=== PATIENT | male | born 1935 | race Caucasian/White ===

== ENCOUNTER → 2017-06-22 02:42 | Emergency (ER) | payer MEDICARE, BC ==
[~2017-06-22 02:42] MED LIST: Iohexol 300* (CONTRAST) 10 ML SDV IV ONE; NS 0.9% 1000 ML* 1,000 ML IV ONE
[2017-06-22 05:46] LABS: Hematocrit 45 % (42-52); Hemoglobin 14.8 g/dl (14.0-18.0); Mean Corpuscular HGB Conc 33 g/dl (31-36); Mean Corpuscular Hemoglobin 30 pg (27-31); Mean Corpuscular Volume 92 fL (80-94); Mean Platelet Volume 9 um3 (7.4-10.4); Red Blood Count 4.87 10^6/ul (4.0-5.4); Red Cell Distribution Width 14 % (10.5-15); White Blood Count 11.5 10^3/ul (3.5-10.8)
[2017-06-22 06:11] LABS: Albumin 4.6 g/dL (3.2-5.2); BUN/Creatinine Ratio 13.8 (8-20); C Reactive Protein 2.92 mg/L (< 5.00); Calcium 9.8 mg/dL (8.6-10.3); EGFR African American 77.3 (>60); EGFR Non-African American 60.1 (>60); Globulin 2.9 g/dL (2-4); Potassium 4.1 mmol/L (3.5-5.0); Total Bilirubin 0.8 mg/dL (0.2-1.0); Total Protein 7.5 g/dL (6.4-8.9)
--- NOTE | 2017-06-22 06:44 | ED ---
Susan Burton Rebecca, scribed for Rhys Amin MD on 06/22/17 at 0350 . Abdominal Pain/Male - HPI Summary HPI Summary: Pt is an 82 y/o M who presents to ED c/o RLQ abdominal pain. Pain began at 2330 tonight after eating and is currently moderate, ranked 7/10. 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 Sx aggravated and alleviated by nothing. Additionally c/ o abdominal bloating. Denies N/V/D, blood in stool, hematuria, fever, chills, rhinorrhea, sore throat and rash. Pt reports he is not passing flatulence or belching. Has had a BM since onset of pain. No prior similar episodes. PMHx diverticulitis. - History of Current Complaint Chief Complaint: EDAbdPain Stated Complaint: LRQ PAIN Time Seen by Provider: 06/22/17 03:44 Hx Obtained From: Patient Onset/Duration: Still Present Severity Currently: Moderate Pain Intensity: 7 Pain Scale Used: 0-10 Numeric Location: Discrete At: RLQ Radiates: No Aggravating Factor(s): Nothing Alleviating Factor(s): Nothing Associated Signs And Symptoms: Positive: Other - Abdominal bloating. Negative: Fever, Blood in Stool, Nausea, Vomiting, Diarrhea - Allergies/Home Medications Allergies/Adverse Reactions: Allergies Allergy/AdvReac Type Severity Reaction Status Date / Time No Known Allergies Allergy Verified 06/22/17 03:59 PMH/Surg Hx/FS Hx/Imm Hx Endocrine/Hematology History: Denies: Hx Diabetes Cardiovascular History: Denies: Hx Hypertension, Hx Pacemaker/ICD Respiratory History: Denies: Hx Asthma, Other Respiratory Problems/Disorders GI History: Reports: Other GI Disorders - Hx diverticulitis History: Denies: Hx Renal Disease Sensory History: Reports: Hx Hearing Aid Psychiatric History: Denies: Hx Panic Disorder - Surgical History Surgery Procedure, Year, and Place: 2 HERNIA, PILONIDAL CYST - Immunization History Date of Tetanus Vaccine: Unk Date of Influenza Vaccine: Fall 2015 Infectious Disease History: No Infectious Disease History: Denies: Hx Clostridium Difficile, Hx Hepatitis, Hx Human Immunodeficiency Virus (HIV), Hx of Known/Suspected MRSA, Hx Shingles, Hx Tuberculosis, Hx Known/ Suspected VRE, Hx Known/Suspected VRSA, History Other Infectious Disease, Traveled Outside the [place] in Last 30 Days - Family History Known Family History: Negative: Cardiac Disease, Hypertension, Diabetes - Social History Alcohol Use: Daily Alcohol Amount: 1 glass of wine daily, 1 glass of Scotch on Thursday Substance Use Type: Reports: None Smoking Status (MU): Never Smoked Tobacco Have You Smoked in the Last Year: No Review of Systems Negative: Fever, Chills Negative: Sore Throat, Nasal Discharge Positive: Abdominal Pain - RLQ abd pain, Other - Abdominal bloating. Negative: Vomiting, Diarrhea, Nausea Positive: other - Negative: blood in stool. Negative: hematuria Negative: Rash All Other Systems Reviewed And Are Negative: Yes Physical Exam - Summary Physical Exam Summary: The patient is well-nourished in no acute distress and in no acute pain. The skin is slightly diaphoretic, warm and skin color reflects adequate perfusion. HEENT: The head is normocephalic and atraumatic. The pupils are equal and reactive. The conjunctivae are clear and without drainage. Nares are patent and without drainage. Mouth reveals moist mucous membranes and the throat is without erythema and exudate. The external ears are intact. The ear canals are patent and without drainage. The tympanic membranes are intact. Neck is supple with full range of motion and non-tender. There are no carotid bruits. There is no neck vein distension. Respiratory: Chest is non-tender. Lungs are clear to auscultation and breath sounds are symmetrical and equal. Cardiovascular: Hear is regular rate and rhythm. There is no murmur or rub auscultated. There is no peripheral edema and pulses are symmetrical and equal. Abdomen: The abdomen is soft and non-tender with no truly reproducible pain, though he points to the right side of the abdomen. No guarding and no rebound. There are normal bowel sounds heard in all four quadrants and there is no organomegaly palpated. Musculoskeletal: No CVA tenderness. Extremities are non-tender with full range of motion. There is good capillary refill. There is no peripheral edema or calf tenderness elicited. Neurological: Patient is alert and oriented to person, place and time. The patient has symmetrical motor strength in all four extremities. Psychiatric: The patient has an appropriate affect and does not exhibit any anxiety or depression. Triage Information Reviewed: Yes Vital Signs On Initial Exam: Initial Vitals Temp Pulse Resp BP Pulse Ox 98.7 F 53 18 187/81 98 06/22/17 02:48 06/22/17 02:48 06/22/17 02:48 06/22/17 02:48 06/22/17 02:48 Vital Signs Reviewed: Yes Diagnostics - Vital Signs Vital Signs Temp Pulse Resp BP Pulse Ox 06/22/17 02:50 98.7 F 53 18 187/81 98 06/22/17 02:48 98.7 F 53 18 187/81 98 - Laboratory Lab Results: Lab Results 06/22/17 06/22/17 06/22/17 Range/Units 05:15 05:15 05:15 WBC 11.5 H (3.5-10.8) 10^3/ul RBC 4.87 (4.0-5.4) 10^6/ul Hgb 14.8 (14.0-18.0) g/dl Hct 45 (42-52) % MCV 92 (80-94) fL MCH 30 (27-31) pg MCHC 33 (31-36) g/dl RDW 14 (10.5-15) % Plt Count 237 (150-450) 10^3/ul MPV 9 (7.4-10.4) um3 Neut % (Auto) 89.3 H (38-83) % Lymph % (Auto) 7.6 L (25-47) % [place] % (Auto) 2.6 (1-9) % Eos % (Auto) 0.1 (0-6) % Baso % (Auto) 0.4 (0-2) % Absolute Neuts (auto) 10.2 H (1.5-7.7) 10^3/ul Absolute Lymphs (auto) 0.9 L (1.0-4.8) 10^3/ul Absolute Monos (auto) 0.3 (0-0.8) 10^3/ul Absolute Eos (auto) 0 (0-0.6) 10^3/ul Absolute Basos (auto) 0 (0-0.2) 10^3/ul Absolute Nucleated RBC 0.01 10^3/ul Nucleated RBC % 0.1 Sodium 134 (133-145) mmol/L Potassium 4.1 (3.5-5.0) mmol/L Chloride 101 (101-111) mmol/L Carbon Dioxide 28 (22-32) mmol/L Anion Gap 5 (2-11) mmol/L BUN 16 (6-24) mg/dL Creatinine 1.16 (0.67-1.17) mg/dL Est GFR ( Amer) 77.3 (>60) Est GFR (Non-Af Amer) 60.1 (>60) BUN/Creatinine Ratio 13.8 (8-20) Glucose 172 H (70-100) mg/dL Lactic Acid 1.4 (0.5-2.0) mmol/L Calcium 9.8 (8.6-10.3) mg/dL Total Bilirubin 0.80 (0.2-1.0) mg/dL AST 27 (13-39) U/L ALT 26 (7-52) U/L Alkaline Phosphatase 59 (34-104) U/L Troponin I 0.00 (<0.04) ng/mL C-Reactive Protein 2.92 (< 5.00) mg/L Total Protein 7.5 (6.4-8.9) g/dL Albumin 4.6 (3.2-5.2) g/dL Globulin 2.9 (2-4) g/dL Albumin/Globulin Ratio 1.6 (1-3) Amylase 34 (29-103) U/L Lipase 25 (11.0-82.0) U/L Result Diagrams: 06/22/17 05:15 06/22/17 05:15 Lab Statement: Any lab studies that have been ordered have been reviewed, and results considered in the medical decision making process. - CT CT Abd/Pel CT Interpretation Completed By: Radiologist - See [facility], pending radiologist report. - EKG 0458 Cardiac Rate: Bradycardia - 59 bpm EKG Rhythm: Sinus Bradycardia EKG Interpretation: Poor R wave progression, no STEMI Abdominal Pain Fem Course/Dx - Course Assessment/Plan: Pt is an 82 y/o M who presents to ED c/o RLQ abdominal pain. Pain began at 2330 tonight after eating and is currently moderate, ranked 7/10. 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 Sx aggravated and alleviated by nothing. Additionally c/o abdominal bloating. Denies N/V/D, blood in stool, hematuria, fever, chills, rhinorrhea, sore throat and rash. Pt reports he is not passing flatulence or belching. Has had a BM since onset of pain. No prior similar episodes. PMHx diverticulitis. EKG reveals sinus libby with poor R wave progression and no STEMI. In the ED course, pt was administered fluids. Pt will be signed out, pending dispo, awaiting CT Abd/Pel. Elevated BP noted and advised to f/u with PCP. - Diagnoses Differential Diagnosis/HQI/PQRI: Abdominal Aortic Aneurysm, Appendicitis, Bowel Obstruction, Constipation, Diverticulitis, Gall Bladder Disease Provider Diagnoses: Abdominal pain Discharge - Discharge Plan Condition: Stable Disposition: OTHER Discharge Disposition Comment: Pt will be signed out, pending dispo, awaiting CT. Referrals: Hunter Posada MD [Primary Care Provider] - The documentation as recorded by the Susan jenkins Rebecca accurately reflects the service I personally performed and the decisions made by , Rhys Amin MD.
--- NOTE | 2017-06-22 08:23 | RAD ---
INDICATION: Right lower quadrant pain COMPARISON: CT abdomen pelvis January 19, 2010 TECHNIQUE: Axial source images were obtained from the hemidiaphragms to the symphysis pubis following administration of oral and intravenous contrast. 91 mL Omnipaque 300 was utilized. Coronal and sagittal reconstructed images were acquired. Lung bases: There is mild bronchiectatic changes in lung bases. There is a bulla/pneumatocele left lung base, unchanged. Liver: The liver is normal in size. There are no masses. There is no ductal dilatation. Gallbladder: There are several small calcified gallstones. There is no thickening gallbladder wall or pericholecystic fluid. Spleen: The spleen is normal in size. There are no masses. Pancreas: There is no focal pancreatic mass or ductal dilatation. Adrenal glands: There is no evidence of adrenal mass. Kidneys: The kidneys are normal in size and position. There are prompt nephrograms and there is prompt excretion bilaterally. There are no renal parenchymal masses. There is no evidence of nephrolithiasis. Adenopathy: There is no evidence of adenopathy by size criteria. Fluid collections: There are no free or localized fluid collections. Vessels:There are atherosclerotic changes involving the aorta and iliac vessels. There is iliac tortuosity and ectasia. There is no focal aneurysm. The IVC appears normal. GI tract: There are no acute CT bowel findings. There is no obstruction. There is a small hiatal hernia. There is a rounded hollow viscus in the central abdomen with air-fluid level containing contrast which measures approximately 4 cm maximum transverse dimension. This likely a giant diverticulum of the small bowel. The lower GI tract is remarkable for extensive diverticula of the sigmoid colon. The cecum, ileocecal valve, and terminal ileum appear normal. The appendix is visualized and appear normal. Pelvic organs: The prostate is enlarged Bladder: There are no bladder masses. Abdominal and pelvic soft tissues: Bilateral fat-containing inguinal hernias. Osseous structures: There are no acute osseous findings. Other: None IMPRESSION: 1. No acute CT findings. No mass or inflammatory changes. 2. Cholelithiasis. No convincing CT evidence of acute cholecystitis. 3. Extensive sigmoid diverticula. No convincing CT evidence of acute diverticulitis 4. 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
[2017-06-22 08:56] LABS: Urine Bilirubin Negative (Negative); Urine Glucose Negative (Negative); Urine Nitrite Negative (Negative)
[2017-06-22 11:23] VITALS: BP 132/71
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
--- NOTE | 2017-06-26 19:48 | ED ---
Melissa Burton Edward, scribed for Duncan Parada MD on 06/22/17 at 0735 . Progress - Progress Note Progress Note: Sign out from Dr. Amin at shift change. Pending CT results. Patient reexamined. He has 3/[address] received. Discussed with Dr Boyer. He is starting an OR case but will have someone from surgery see the patient. Cady the PA with [facility] saw the patient, discussed with Dr Boyer and they will see the patient in follow up in the office. They do not feel he needs admission or surgery today. Patient is comfortable at this point. - Results/Orders Results/Orders: ABD/PEL CT SHOWS 1. Gallbladder distention with tiny gallstones and subtle adjacent inflammation suggests possible cholecystitis. Correlate clinically. 2. Diverticulosis with question of subtly inflamed diverticula along the proximal sigmoid colon. A very early diverticulitis cannot be excluded. Note is made of giant diverticula in the small bowel in the midabdomen. 3. No CT evidence for appendicitis identified. Appendix is poorly defined on this study. 4. Hepatomegaly with fatty infiltration of the liver. Re-Evaluation - Re-Evaluation 1 Re-Evaluation Time: 07:50 Course/Dx - Diagnoses Provider Diagnoses: Abdominal pain - Provider Notifications Discussed Care Of Patient With: Owen Boyer Time Discussed With Above Provider: 08:00 The documentation as recorded by the Melissa jenkins Edward accurately reflects the service I personally performed and the decisions made by , Duncan Parada MD.
== END | disposition home or self-care (01) ==
LOC: ED 02:42
DX: R10.9 Unspecified abdominal pain (principal); K57.90 Diverticulosis of intestine, part unspecified, without perforation or abscess without bleeding
CPT/HCPCS: 36415; 74177; 80053; 81003; 82150; 83605; 83690; 84484; 85025; 86140; 93005; 99282; Q9967

== ENCOUNTER 2018-05-12 10:15 | Observation (INO) | payer MEDICARE, BC ==
--- NOTE | 2018-05-12 12:53 | ED ---
Abdominal Pain/Male - HPI Summary HPI Summary: Patient presents with right-sided belly pain after eating [place] kisses on Thursday. He reports this lasted for a few hours but was not accompanied by nausea, vomiting or diarrhea. It eventually dissipated without intervention. Since then, he's been having a decreased appetite. He denies nausea, vomiting or diarrhea with foods since and no increase in pain however he has been avoiding fatty foods. Reports this morning he felt feverish so checked his temperature and had a fever of 101 Fahrenheit orally. He went to his PCP who kevin labs and told him he has an elevated white blood cell count and a glucose of 200 which is not normal for him. She recommended he come to the emergency department. Currently he denies headache, chest pain, shortness of breath, arm or leg pain, dysuria, flank pain, urinary frequency or hesitation. Last BM 5 days ago - this is longer than usual for him but again admits he's not been eating much. Has been passing flatulence. He reports he was seen last June with similar symptoms of right upper quadrant pain. A scan of his abdomen and indicated he had cholelithiasis with many stones but did not have acute blockage and so he was discharged home to follow-up with surgery. Admits he met with Dr. Boyer who offered diet control and no surgery which patient agreed with. He's had a couple of "minor attacks" since but they've been manageable. Last meal 7:00am No complications with previous surgeries Denies h/o cardiac, pulmonary or bleeding issues - History of Current Complaint Chief Complaint: EDAbdPain Stated Complaint: ABD PAIN/FEVER Time Seen by Provider: 05/12/18 11:16 Hx Obtained From: Patient Pain Intensity: 2 - Allergies/Home Medications Allergies/Adverse Reactions: Allergies Allergy/AdvReac Type Severity Reaction Status Date / Time No Known Allergies Allergy Verified 05/12/18 10:20 PMH/Surg Hx/FS Hx/Imm Hx Previously Healthy: Yes Endocrine/Hematology History: Denies: Hx Anticoagulant Therapy, Hx Blood Disorders, Hx Diabetes, Hx Thyroid Disease, Hx Anemia, Hx Unexplained Bleeding, Hx Coagulopothy Cardiovascular History: Denies: Hx Aneurysm, Hx Hypertension, Hx Pacemaker/ICD Respiratory History: Denies: Hx Asthma, Other Respiratory Problems/Disorders GI History: Reports: Hx Diverticulosis, Hx Gall Bladder Disease - cholelithiasis w/o obstruction Denies: Hx Cirrhosis, Hx Crohn's Disease, Hx Gastroesophageal Reflux Disease , Hx Gastrointestinal Bleed, Hx Hiatal Hernia, Hx Irritable Bowel, Hx Obstructive Bowel, Hx Ulcer History: Denies: Hx Kidney Infection, Hx Kidney Stones, Hx Renal Disease Sensory History: Reports: Hx Hearing Aid Psychiatric History: Denies: Hx Panic Disorder - Surgical History Surgery Procedure, Year, and Place: 2 HERNIA, PILONIDAL CYST - Immunization History Date of Tetanus Vaccine: Unk Date of Influenza Vaccine: Fall 2015 Infectious Disease History: No Infectious Disease History: Denies: Hx Clostridium Difficile, Hx Hepatitis, Hx Human Immunodeficiency Virus (HIV), Hx of Known/Suspected MRSA, Hx Shingles, Hx Tuberculosis, Hx Known/ Suspected VRE, Hx Known/Suspected VRSA, History Other Infectious Disease, Traveled Outside the [place] in Last 30 Days - Family History Known Family History: Negative: Cardiac Disease, Hypertension, Diabetes - Social History Occupation: Retired - worked at [employer] Lives: With Family Alcohol Use: Daily Alcohol Amount: 1 glass of wine daily, 1 glass of Scotch on Thursday Hx Substance Use: No Substance Use Type: Reports: None Hx Tobacco Use: No Smoking Status (MU): Never Smoked Tobacco Have You Smoked in the Last Year: No Review of Systems Positive: Fever Negative: Chest Pain Negative: Shortness Of Breath Positive: Abdominal Pain, Other - decreased appetite Genitourinary: Negative Musculoskeletal: Negative Skin: Negative Neurological: Negative Psychological: Normal All Other Systems Reviewed And Are Negative: Yes Physical Exam Triage Information Reviewed: Yes Vital Signs On Initial Exam: Initial Vitals Temp Pulse Resp BP Pulse Ox 97.6 F 90 17 130/68 96 05/12/18 10:16 05/12/18 10:16 05/12/18 10:16 05/12/18 10:16 05/12/18 10:16 Vital Signs Reviewed: Yes Appearance: Positive: Well-Appearing, No Pain Distress, Well-Nourished Skin: Positive: Warm, Skin Color Reflects Adequate Perfusion, Dry - no ecchymosis over ab Head/Face: Positive: Normal Head/Face Inspection Eyes: Positive: Normal, EOMI, Conjunctiva Clear - anicertic sclera ENT: Positive: Normal ENT inspection, Hearing grossly normal, Pharynx normal - mucosa moist Neck: Positive: Supple, Nontender Respiratory/Lung Sounds: Positive: Clear to Auscultation, Breath Sounds Present. Negative: Rales, Rhonchi, Stridor, Wheezes Cardiovascular: Positive: Normal, RRR, S1, S2. Negative: Murmur, Rub, Leg Edema Left, Leg Edema Right Abdomen Description: Positive: Soft, Distended - diffuse, McBurney's Point Tenderness - no rebounding, Other: - pt points to RUQ as being painful but is NTTP; (-) Keating's sign. Negative: CVA Tenderness (R), CVA Tenderness (L), Guarding, Hepatomegaly Bowel Sounds: Positive: Present Musculoskeletal: Positive: Normal, Strength/ROM Intact Neurological: Positive: Normal, Sensory/Motor Intact, Alert, Oriented to Person Place, Time, CN Intact II-III Psychiatric: Positive: Normal Diagnostics - Vital Signs Vital Signs Temp Pulse Resp BP Pulse Ox 05/12/18 10:16 97.6 F 90 17 130/68 96 - Laboratory Result Diagrams: 05/12/18 13:09 05/12/18 13:09 Lab Statement: Any lab studies that have been ordered have been reviewed, and results considered in the medical decision making process. Abdominal Pain Fem Course/Dx - Course Course Of Treatment: Pt arrives w/ RUQ pain s/p eating chocolate 4 days ago. No lisa pain since but has had reduced appetite and avoiding fatty foods. Labs reveal elevated WBC's, elevated CRP and bilirubin. U/S reveals cholecystitis. CT ab/pelvic was cancelled after U/S results however Dr. Boyer would like to keep order. Pt will also receive zosyn and IVF. He's been NPO since 7:00am and no previous issues with anesthesia. Dr. Boyer to admit. Pt comfortable and in stable condition. Discussed w/ Dr. Armenta. - Diagnoses Provider Diagnoses: Cholecystitis Discharge - Sign-Out/Discharge Documenting (check all that apply): Patient Departure - Discharge Plan Condition: Stable Disposition: ADMITTED TO [facility] - Billing Disposition and Condition Condition: STABLE Disposition: Admitted to [facility]
[2018-05-12 13:23] LABS: ABS Basophils 0.1 10^3/ul (0-0.2); ABS Eosinophils 0 10^3/ul (0-0.6); ABS Lymphocytes 1.2 10^3/ul (1.0-4.8); ABS Monocytes 1.5 10^3/ul (0-0.8); ABS Neutrophils 13.3 10^3/ul (1.5-7.7); ABS Nucleated RBC 0 10^3/ul; Eosinophil % 0 % (0-6); Hematocrit 41 % (42-52); Hemoglobin 13.9 g/dl (14.0-18.0); Lymphocyte % 7.2 % (25-47); Mean Corpuscular HGB Conc 34 g/dl (31-36); Mean Corpuscular Hemoglobin 31 pg (27-31); Mean Corpuscular Volume 91 fL (80-94); Mean Platelet Volume 8.6 um3 (7.4-10.4); Nucleated Red Blood Cells % 0.1; Platelet Count 177 10^3/ul (150-450); Red Blood Count 4.52 10^6/ul (4.00-5.40); Red Cell Distribution Width 14 % (10.5-15)
[2018-05-12 13:43] LABS: EGFR Non-African American 54.7 (>60)
[2018-05-12 13:56] LABS: INR 1.02 (0.77-1.02)
--- NOTE | 2018-05-12 14:25 | RAD ---
HISTORY: RUQ pain, h/o cholelithiasis COMPARISONS: CT dated June 22, 2017 TECHNIQUE: Multiple transverse and longitudinal ultrasound images were obtained of the right upper quadrant of the abdomen using grayscale and color Doppler imaging. FINDINGS: LIVER: The liver is diffusely echogenic and coarse in echotexture, with decreased acoustic transmission. The liver measures 19 cm in long axis.. There is normal hepatopedal flow of the portal vein on Doppler imaging. BILIARY TREE: There is no intrahepatic or extrahepatic biliary dilatation. The common duct measures 0.4 cm. GALLBLADDER: There are multiple gallstones. There is gallbladder wall thickening with a small amount of pericholecystic fluid. No sonographic Keating's sign is reported. PANCREAS: The head of the pancreas is unremarkable. The tail of the pancreas is not well visualized secondary to overlying bowel gas. RIGHT KIDNEY: The right kidney is normal in shape, size, contour, and echogenicity. There is no hydronephrosis or nephrolithiasis. The right kidney measures 11.1 x 4.9 x 4.2 cm. AORTA AND IVC: The aorta and IVC are unremarkable. FLUID: There are no pleural effusions. There is no free fluid within the hepatorenal recess. OTHER FINDINGS: None. IMPRESSION: 1. CHOLELITHIASIS WITH GALLBLADDER WALL THICKENING AND A SMALL AMOUNT OF PERICHOLECYSTIC FLUID. THERE IS NO SONOGRAPHIC KEATING'S SIGN RECORDED. THIS IS SUSPICIOUS FOR ACUTE CHOLECYSTITIS, THOUGH THE SONOGRAPHIC IMAGING FEATURES ARE INDETERMINATE. 2. HEPATOMEGALY WITH FATTY INFILTRATION OF THE LIVER
[2018-05-12 14:26] LABS: Urine Appearance Cloudy; Urine Blood Negative (Negative); Urine Color Amber; Urine Ketones Negative (Negative); Urine Protein 1+(30 mg/dL) (Negative); Urine Red Blood Cell Absent (Absent); Urine Specific Gravity 1.028 (1.010-1.030); Urine Urobilinogen Positive (Negative); Urine White Blood Cell Trace(0-5/hpf) (Absent)
[2018-05-12] MEDS ORDERED: Iodixanol* (CONTRAST) 320 MG/ML 100 ML SDV IV ONE (14:31)
--- NOTE | 2018-05-12 14:39 | ED ---
Progress - Progress Note Progress Note: I supervised the care of the physician educational program assistant and performed the history and physical exam on the pt. Hx: Pt reports intermittent right sided abd pain since June, worse since last week or so. Pain was more significant 3 days ago after eating chocolate. Since then he has been on a low fat diet. Pt had a fever this morning and was sent by his PCP to the ED. Physical Exam: Appearance: Well appearing, no pain distress Skin: warm, dry, reflects adequate perfusion Head/face: normal Eyes: EOMI, LAURA ENT: normal Neck: supple, non-tender Respiratory: CTA, breath sounds present Cardiovascular: RRR, pulses symmetrical Abdomen: soft, right upper quadrant tenderness without Keating's sign. Bowel: present Musculoskeletal: normal, strength/ROM intact Neuro: normal, sensory motor intact, A&Ox3 Plan: antibiotics, consult surgery and admit. Course/Dx - Diagnoses Provider Diagnoses: Cholecystitis Discharge - Sign-Out/Discharge Documenting (check all that apply): Patient Departure - Discharge Plan Condition: Fair Disposition: ADMITTED TO [facility] Referrals: Hunter Posada MD [Primary Care Provider] - - Billing Disposition and Condition Condition: FAIR Disposition: Admitted to [facility]
[2018-05-12] MEDS ORDERED: Piperacillin/Tazobac ADVAN(*) 3.375 GM in NS 0.9% 100 ML* 100 ML IVPB ONE ×2 (14:43→17:02)
[2018-05-12] MEDS ORDERED: NS 0.9% 1000 ML* 1,000 ML IV SCH (15:00)
--- NOTE | 2018-05-12 15:35 | RAD ---
INDICATION: 82-year-old with right lower quadrant pain. Elevated white count. Concurrent ultrasound shows findings suspicious for acute cholecystitis COMPARISON: Ultrasound same date; CT abdomen pelvis June 22, 2017 TECHNIQUE: Axial source images were obtained from the hemidiaphragms to the symphysis pubis following administration of oral and intravenous contrast. 99 mL Visipaque 320 was utilized. Coronal and sagittal reconstructed images were acquired. Lung bases: There is minor gravity dependent atelectasis in the lung bases. There is trace right-sided pleural fluid. There is a small amount of subpleural fat. Liver: The liver is mildly enlarged with findings of mild hepatic steatosis. There are no masses. There is no ductal dilatation. Gallbladder: There is cholelithiasis with mild prominence the gallbladder wall and a small amount of cholecystic fluid similar to the ultrasound. Spleen: The spleen is normal in size. There are no masses. Pancreas: There is no focal pancreatic mass or ductal dilatation. Adrenal glands: There is no evidence of adrenal mass. Kidneys: The kidneys are normal in size and position. There are prompt nephrograms and there is prompt excretion bilaterally. There are no renal parenchymal masses. There is no evidence of nephrolithiasis. Adenopathy: There is no evidence of adenopathy by size criteria. Fluid collections: There are no free or localized fluid collections. Vessels:There are atherosclerotic changes involving the aorta and iliac vessels. There is no focal aneurysm. The IVC appears normal. GI tract: There is a small hiatal hernia. There are no acute abnormalities of the upper GI tract. There is a mid small bowel diverticulum. The appendix is not is identified with certainty but there is no periappendiceal inflammatory change. There is moderate stool throughout the colon with colonic redundancy. There are extensive diverticula of the sigmoid colon but there is no CT findings of acute diverticulitis. Pelvic organs: Prominent prostatic hypertrophy, unchanged Bladder: There are no bladder masses. Abdominal and pelvic soft tissues: Bilateral fat-containing inguinal hernias.. Osseous structures: There are no acute osseous findings. Other: None IMPRESSION: 1. CT findings suggest acute cholecystitis. 2. Nonvisualization the appendix. No periappendiceal inflammatory change. 3. Extensive diverticula sigmoid colon without CT evidence of acute diverticulitis. 4. Marked prostatic enlargement.
[2018-05-12] MEDS ORDERED: Morphine VIAL* 4 MG/ML VIAL (1 ml vial) IV PRN (17:02)
[2018-05-12] MEDS ORDERED: NS 0.9% 1000 ML* 1,000 ML IV ONE (17:02)
[2018-05-12] MEDS ORDERED: Ondansetron ODT TAB* 4 MG SL PRN (17:02)
[2018-05-12] MEDS ORDERED: Zosyn per Pharmacy* NOTE FOLLOW UP SCH (18:00)
[2018-05-12] MEDS ORDERED: Buffered Lidocaine 0.9% SYRIN* 5 ML/SYR SYRINGE INTRADERM ONE (18:10)
[2018-05-12] MEDS ORDERED: NS 0.9% 100 ML* 100 ML ONE (20:09)
--- NOTE | 2018-05-12 20:10 | HP ---
CC: Dr. Hunter Posada, [facility] * HISTORY AND PHYSICAL: DATE OF ADMISSION: 05/12/18 CHIEF COMPLAINT: Epigastric and right upper quadrant abdominal pain. 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 He states he ate some chocolate on Thursday afternoon and developed some lower abdominal discomfort, which improved overnight, but the next day, he described what is a generalized stomach discomfort. He noted his urine was somewhat more concentrated and he had developed a fever this morning and was seen in the family medicine office. There, he was noted to have an elevated white blood cell count of 16,000 and mildly elevated total bilirubin of 2.2 and he was referred to the emergency room. When seen in the emergency room, he was noted to be afebrile with stable vital signs. He had some tenderness in the epigastric and right upper quadrant, but no generalized abdominal discomfort. Repeat laboratory workup included a white blood cell count of 16,000. An INR of 1.02. BUN and creatinine were 20 and 1.26 and he had a total bilirubin of 1.7. A C-reactive protein of 310. Lipase was normal as were liver transaminases. Lactic acid 1.9. He underwent an ultrasound of his gallbladder. I did review these images. These show several gallstones with a thickened gallbladder wall and a small amount of pericholecystic fluid. In addition, he underwent a CAT scan due to the fact that he was complaining of some lower abdominal discomfort. This showed findings once again consistent with acute calculous cholecystitis with some gallbladder wall thickening and pericholecystic inflammation. There were no other acute findings noted on the CT scan. Surgical consultation in the emergency room was obtained. The patient is being admitted now for care of his acute calculous cholecystitis. PAST MEDICAL HISTORY: Benign prostatic hypertrophy. PAST SURGICAL HISTORY: Bilateral inguinal hernia repairs. MEDICATIONS: Medicines include finasteride. ALLERGIES: He has no known drug allergies. 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 He is . He does not use tobacco. He drinks alcohol on a social basis. REVIEW OF SYSTEMS: Cerebrovascular: He has no dizziness or visual disturbances. Cardiovascular: No chest pain, shortness of breath. He is quite active and stays in shape. Pulmonary: No wheezing, hemoptysis, or asthma. GI : As per above, he has known gallstones. : Has benign prostatic hypertrophy. His last PSA was normal. PHYSICAL EXAMINATION GENERAL: He is a well-developed, well-nourished male, quite pleasant, awake, alert, and conversant, and appears to be in no apparent distress. VITAL SIGNS: Temperature 97.6, pulse 90, blood pressure 130/68. HEENT: His oral mucosa is dry. Sclerae are slightly discolored. Trachea was midline. LUNGS: Clear to auscultation with normal respiratory effort. HEART: Regular rate and rhythm without murmurs, rubs, or gallops. ABDOMEN: Soft and nondistended. He had well-healed bilateral inguinal hernia repairs. There is no umbilical hernia. He has normoactive bowel sounds throughout. He has some mild tenderness in the epigastric and right upper quadrant with some voluntary guarding, but no rigidity, mass, or peritoneal irritation. PSYCHIATRIC: He is awake, alert, and oriented x3. He has normal judgment. IMPRESSION: 1. Acute calculous cholecystitis. 2. Benign prostatic hypertrophy. 3. No significant other medical issues including no history of coronary artery disease, hypertension, diabetes, renal insufficiency, or smoking history. PLAN: 1. The patient will be admitted to the surgical service. 2. We will start him on IV Zosyn as well as IV fluids. 3. We will start him on clear liquids and kept n.p.o. after midnight. 4. Repeat laboratory values will be obtained in the morning after hydration. 5. Plan will be for laparoscopic cholecystectomy tomorrow. I discussed the procedure and the routine care of cholecystitis. The risks but not limited to bleeding, infection, intraabdominal abscess formation, injury to peritoneal and retroperitoneal structures, bile leak, abscess, open procedure, risk of anesthesia, and recovery times and hospital stays were all discussed. [id number]/[facility] #: [id number] [facility] NETWORKKeren
[2018-05-12] MEDS: ZOSYN 3.375 GM Q8H per EXTENDED INFUSION IVPB SCH ×2 (20:15)
[2018-05-12] MEDS: NS 0.9% 1000 ML* 1,000 ML IV SCH (20:16)
[2018-05-12] MEDS: Acetaminophen TAB* 325 MG PO PRN (22:19)
[2018-05-13] MEDS: NS 0.9% 1000 ML* 1,000 ML IV SCH (00:43)
[2018-05-13] MEDS: ZOSYN 3.375 GM Q8H per EXTENDED INFUSION IVPB SCH ×2 (03:35)
[2018-05-13 06:01] LABS: Hematocrit 36 % (42-52); Hemoglobin 12.3 g/dl (14.0-18.0); Mean Corpuscular HGB Conc 34 g/dl (31-36); Mean Corpuscular Hemoglobin 31 pg (27-31); Mean Corpuscular Volume 91 fL (80-94); Mean Platelet Volume 8.8 um3 (7.4-10.4); Platelet Count 157 10^3/ul (150-450); Red Blood Count 3.93 10^6/ul (4.00-5.40); Red Cell Distribution Width 14 % (10.5-15); White Blood Count 13.9 10^3/ul (3.5-10.8)
[2018-05-13 06:18] LABS: EGFR Non-African American 56.7 (>60)
[2018-05-13] MEDS ORDERED: Ondansetron INJ* 2 MG/ML VIAL IV PRN ×2 (10:54→12:54)
[2018-05-13] MEDS ORDERED: Naloxone* 0.4 MG/ML 1 ML VIAL IV PRN (10:54)
[2018-05-13] MEDS ORDERED: Ketorolac INJ* 30 MG/ML 1 ML VIAL IV PRN (10:54)
[2018-05-13] MEDS ORDERED: HYDROcodone/ACETAMIN 5-325 MG* 1 TAB PO PRN (10:54)
[2018-05-13] MEDS ORDERED: fentaNYL* 50 MCG/ML 2 ML VIAL (100 MCG VIAL) IV PRN (10:54)
[2018-05-13] MEDS ORDERED: oxyCODONE/Acetamin 5/325 MG* TAB PO PRN ×2 (10:54→12:54)
[2018-05-13] MEDS ORDERED: Bupivacaine 0.25% W/EPI* 10 ML SDV ONE (11:00)
[2018-05-13] MEDS ORDERED: ZOSYN 3.375 GM Q8H per EXTENDED INFUSION IVPB SCH ×2 (11:00)
[2018-05-13] MEDS ORDERED: fentaNYL* 50 MCG/ML 2 ML VIAL (100 MCG VIAL) ONE ×3 (11:06→12:38)
[2018-05-13] MEDS ORDERED: Propofol* 10 MG/ML 20 ML BTL IV PUSH ONE (11:06)
[2018-05-13] MEDS ORDERED: Mivacurium Chloride* 20 MG/10 ML VIAL IV ONE (11:06)
[2018-05-13] MEDS ORDERED: EPHEDrine (Pressors)* 50 MG/ML VIAL ONE (11:39)
[2018-05-13] MEDS: ZOSYN 3.375 GM Q6H - Intermittant 30 min Infusion IVPB SCH ×6 (11:39→22:36)
[2018-05-13] MEDS ORDERED: Phenylephrine IV* 40 MCG/ML 10 ML SYRINGE ONE (11:54)
[2018-05-13] MEDS ORDERED: Dexamethasone IV* 4 MG/ML 1 ML (4 MG) ONE (11:55)
[2018-05-13] MEDS ORDERED: Ondansetron INJ* 2 MG/ML VIAL ONE (11:55)
[2018-05-13] MEDS ORDERED: Metoprolol Tartrate IV* 1 MG/ML 5 ML VIAL ONE (11:57)
[2018-05-13] MEDS ORDERED: Docusate CAP* 100 MG PO PRN (12:54)
--- NOTE | 2018-05-13 13:00 | OP ---
Operative Report - Blank - Operative Report Date of Operation: 05/13/18 Note: Brief operative note: Pre-op: Acute calculus cholecystitis Post-op: Same Procedure: Laparoscopic cholecystectomy Surgeon: Dr. Shirley Compensation/Benefits Specialist: AVERY Lux Anesthesia: MALICKA EBL: Minimal Drains: DANY-vac to self-suction Catheters: None Specimen: Gallbladder Findings: See dictated op note
[2018-05-13] MEDS ORDERED: Ketorolac INJ* 30 MG/ML 1 ML VIAL ONE (13:29)
--- NOTE | 2018-05-13 16:05 | OP ---
CC: Dr. Shirley; Dr. Posada OPERATIVE REPORT: DATE OF OPERATION: 05/13/18 DATE OF : 33 SURGEON: Surinder Shirley MD ISSUE CLERK: AVERY Augustin ANESTHESIOLOGIST: Dr. Albarran. ANESTHESIA: General anesthetic, local infiltration. PRE-OP DIAGNOSIS: Acute cholecystitis. POST-OP DIAGNOSIS: Acute cholecystitis. OPERATIVE PROCEDURE: Laparoscopic cholecystectomy. DESCRIPTION OF PROCEDURE: The patient was supine on the operative table. After adequate general ane sthetic, compression stockings, Edmond Hugger warmer, and intravenous antibiotics, the abdomen was prep ped with antiseptic, draped in a sterile fashion. Local infiltrative anesthesia was carried out at t he umbilicus. Subsequently, at the additional cannula site small umbilical incision was created. Blun t port cannula was placed. Insufflation carried out with carbon dioxide. Additional cannulae, 12 mm subxiphoid and 5 mm right upper quadrant and right anterior axillary line were placed through small s tab wounds under direct vision. Gallbladder was acutely inflamed. The omentum was peeled off. There was purulent exudate in the area. The gallbladder was thick walled and tensely distended. It was o pened with cautery at the fundus and there was white bile. This was suctioned out. The gallbladder was then tended upward and areola tissue and the region of the cystic duct and cystic artery was quit e edematous and little friable, but I was able to peel it away and identify the duct and the artery, which were clipped and divided. The gallbladder was taken off the liver bed. The plane was not very good, but again, I was able to get into the a little plane of some edema and able to get through nehemiah t and little electrocautery took care of the bleeding. The gallbladder was placed in a retrieval bag and brought out through the subxiphoid site. The operative field was well irrigated with warm salin e solution. Free fluid was suctioned out. Hemostasis was ensured. The Aki-Don drain was brou ght out through the lateral stab wound site and placed down into the gallbladder fossa. It was sutur ed to the skin with 3-0 Prolene. The hemostasis was again confirmed. The epigastric incision was cl osed with 0 Vicryl using Endoclose device and the umbilicus closed with 0 Vicryl as well. The skin i ncisions were closed with 5-0 Vicryl followed by Steri-Strips. He tolerated the procedure well, was awakened and brought to recovery in good condition. No complications. Drain was Aki-Don. Spo nge and instrument counts correct. Specimen is gallbladder. Estimated blood loss 50 mL. [id number]/[id number] #: [id number]
[2018-05-14] MEDS: ZOSYN 3.375 GM Q6H - Intermittant 30 min Infusion IVPB SCH ×4 (05:00→10:19)
[2018-05-14 05:50] LABS: ABS Basophils 0 10^3/ul (0-0.2); ABS Eosinophils 0 10^3/ul (0-0.6); ABS Lymphocytes 0.6 10^3/ul (1.0-4.8); ABS Monocytes 0.7 10^3/ul (0-0.8); ABS Neutrophils 11.4 10^3/ul (1.5-7.7); ABS Nucleated RBC 0 10^3/ul; Eosinophil % 0 % (0-6); Hematocrit 35 % (42-52); Hemoglobin 11.9 g/dl (14.0-18.0); Mean Corpuscular HGB Conc 34 g/dl (31-36); Mean Corpuscular Hemoglobin 31 pg (27-31); Mean Corpuscular Volume 91 fL (80-94); Mean Platelet Volume 9.3 um3 (7.4-10.4); Nucleated Red Blood Cells % 0; Platelet Count 161 10^3/ul (150-450); Red Blood Count 3.84 10^6/ul (4.00-5.40); Red Cell Distribution Width 14 % (10.5-15); White Blood Count 12.7 10^3/ul (3.5-10.8)
[2018-05-14 06:07] LABS: EGFR Non-African American 60.7 (>60)
[2018-05-14] MEDS: Acetaminophen TAB* 325 MG PO PRN (08:00)
[2018-05-14] MEDS ORDERED: Finasteride TAB* 5 MG PO SCH (09:00)
--- NOTE | 2018-05-14 09:29 | PN ---
Progress Note - Progress Note Date of Service: 05/14/18 Note: POD#1 s/p lap jose Afeb, VS noted Voiding DANY small drainage, non-bilious feels well, minimal pain Alert and coherent Abd soft, min tender, incis clean LAbs noted, WBC down, Bili down Impr: s/p lap jose for severe acute cholecystitis LAbs improved DANY D/C'd Discharge home on oral abx
[2018-05-14] MEDS ORDERED: Magnesium Hydroxide LIQ* 30 ML UDC PO ONE (09:52)
[2018-05-14 11:29] VITALS: BP 114/51
--- NOTE | 2018-05-14 12:41 | PN ---
Progress Note - Progress Note Date of Service: 05/14/18 SOAP: Subjective: Sav is POD #1 s/p lap jose. He's feeling much better after the drain keysha drain was removed and reports having no pain. Yesterday he took Tylenol for pain but has not required any pain medication since then. He is passing flatus but has not yet had a bowel movement. Denies n/v, fevers and chills. Objective: Vital Signs 05/14/18 05/14/18 05/14/18 07:23 08:00 11:19 Temperature 97.5 F 98.0 F Pulse Rate 48 51 Respiratory 16 18 16 Rate Blood Pressure 115/56 114/51 (mmHg) O2 Sat by Pulse 96 98 Oximetry Intake & Output 05/13/18 05/14/18 05/14/18 22:59 06:59 14:59 Intake Total 532 437 7027 Output Total 270 360 220 Balance 685 620 981 Intake: IV Fluids 503 154 6409 ABX - ZOSYN 105 105 LR 680 1096 IVPB 200 ABX - ZOSYN 200 Oral 850 100 Output: KEYSHA #1 20 35 20 Urine 250 325 200 general- The patient is comfortably sitting up in bed and is in no acute distress. Abdomen- soft, nontender on palpation, incision sites are clean with no surrounding erythema heart- regular rate and rhythm lungs- clear to auscultation bilaterally Assessment: Status post lap jose the patient is doing well with no pain or signs of infection. Plan: Discharge home on ABX. Follow up appointment in the office next week.
== END 2018-05-14 15:30 | disposition home or self-care (01) ==
LOC: ED 10:15 → SSU 16:59
PROVIDERS: ADMIT Surgery; ATTEND Surgery
PROC: 0FT44ZZ Resection of Gallbladder, Percutaneous Endoscopic Approach (ICD-10-PCS; principal; 2018-05-12)
DX: K81.0 Acute cholecystitis (principal); R10.11 Right upper quadrant pain; R10.30 Lower abdominal pain, unspecified; R50.9 Fever, unspecified
CPT/HCPCS: 36415; 74177; 76705; 80048; 80053; 80076; 81003; 81015; 83605; 83690; 83735; 85025; 85027; 85610; 85730; 86140; 87040; 87086; 88304; 99283; A9270-GY; G0378; J1100; J1885; J2405; J2543; J2704; J3010; J3490; Q9967